=== PATIENT | female | born 2000 | race Caucasian/White ===

== ENCOUNTER 2020-05-26 07:40 | Emergency (ER) | payer OTHER, BC, SELFPAY ==
[2020-05-26 07:42] VITALS: RESP 20; TEMP 36.9; O2SAT 96; BMI 30.7
--- NOTE | 2020-05-26 07:59 | XR_ITS ---
PROCEDURE: XR CHEST 2V CLINICAL HISTORY: PAIN Right-sided chest pain COMPARISON: No exams were available for comparison FINDINGS: The cardiomediastinal silhouette and pulmonary vascularity are within normal limits. The lungs are clear without infiltrates, suspicious nodules, or pleural effusions. No acute bony abnormalities. IMPRESSION: No acute findings. Dictated by: Leopoldo Quiros MD 05/26/2020 10:04 Electronically signed by Leopoldo Quiros MD in [place] 05/26/2020 10:04
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
--- NOTE | 2020-05-26 07:59 | XR_ITS ---
PROCEDURE: XR SHOULDER RT MIN 2V CLINICAL INDICATION: PAIN COMPARISON: No exams were available for comparison FINDINGS: No fracture or dislocation. No lytic or blastic change. There is normal mineralization. The joint spaces are well-preserved. No significant degenerative/arthritic changes. No erosive changes evident. Other findings:None. IMPRESSION: No acute findings. Dictated by: Leopoldo Quiros MD 05/26/2020 10:04 Electronically signed by Leopoldo Quiros MD in [facility] 05/26/2020 10:04
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
[2020-05-26 08:13] LABS: Urine Pregnancy, HCG Qual. Negative (Negative)
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
[2020-05-26 08:23] VITALS: BP 124/84; PULSE 96; RESP 18; O2SAT 100
[2020-05-26 08:30] VITALS: BP 130/100; PULSE 82; RESP 20; O2SAT 99
--- NOTE | 2020-05-26 09:18 | PC.NURSE ---
CT SCAN OF CERVICAL SPINE IS NEGATIVE. C-COLLAR REMOVED. NAD. PATIENT REMAINS A/O X3 WITH GCS 15. NO NEW SYMPTOMS. WILL CONTINUE TO MONITOR.
[2020-05-26 09:21] VITALS: BP 130/85; PULSE 86; RESP 18; O2SAT 98
[2020-05-26 09:32] VITALS: BP 131/77; PULSE 81; RESP 18; TEMP 37.1; O2SAT 100
== END 2020-05-26 09:32 | disposition home or self-care (01) ==
PROVIDERS: Emergency Provider Emergency Medicine; PCP Family Medicine
DX: S46.911A Strain of unspecified muscle, fascia and tendon at shoulder and upper arm level, right arm, initial encounter (principal); S16.1XXA Strain of muscle, fascia and tendon at neck level, initial encounter; S80.02XA Contusion of left knee, initial encounter; S29.011A Strain of muscle and tendon of front wall of thorax, initial encounter; G44.319 Acute post-traumatic headache, not intractable; V43.53XA Car driver injured in collision with pick-up truck in traffic accident, initial encounter; Y92.414 Local residential or business street as the place of occurrence of the external cause
CPT/HCPCS: 70450; 71046; 72125; 73030; 73090; 73562; 81025; 99283

== ENCOUNTER 2020-09-29 10:01 | Emergency (ER) | payer BC, SELFPAY ==
[2020-09-29 10:31] VITALS: BP 116/76; PULSE 88; RESP 14; TEMP 37.1; O2SAT 100; BMI 27.8
--- NOTE | 2020-09-29 10:54 | HMH.EDUTC ---
[facility] [place] Clinical Impression: UTI (urinary tract infection) Qualifiers: Urinary tract infection type: site unspecified Hematuria presence: without hematuria Qualified Code(s): N39.0 - Urinary tract infection, site not specified Disposition: Home, Self-Care Condition on Discharge: Good Instructions: Urinary Tract Infection, DI for Urinary Tract Infection (UTI), Phenazopyridine, Nitrofurantoin Additional Instructions: *Increase fluids. Water not Soda or Tea *Start antibiotic immediately and be sure to take as ordered for the FULL length of time although you should start to see improvement over the next 48 hours *Pyridium as needed Remember this medication will turn your urine [place]. This is normal but it will stain what ever it gets on *You should not use Pyridium for more than 48 hours. If so , follow up with your primary physician to review urine culture and ensure that antibiotic is adequate for infection *Be SURE to follow up anytime for new or worsening symptoms with your family doctor. AND in 48 hours for urine culture results with your family doctor, if you do not have a doctor then you may call back to the [facility] for urine culture results and further treatment. We do recommend that you choose and establish care with a Primary Care Physician. AND follow up with them in 10-14 days to repeat UA to ensure infection is resolved and blood no longer present *Be sure to let your PCP know that we sent urine cultures from the [facility] so they can follow up to ensure that you area the on the correct antibiotic Call your doctor office and make appointment for 48 hours (2 days from today) to follow up and get the results of your urine culture and further treatment Prescriptions: Nitrofurantoin Monohyd/M-Cryst [Macrobid 100 mg Capsule] 100 mg PO BID 10 Days #20 cap Transmission Status: Pending to [facility] # Phenazopyridine HCl [Pyridium 200mg Tablet] 200 pow PO TID #6 tab Transmission Status: Pending to [facility] # Referrals: Camron Cardona MD [Primary Care Provider] - As needed Time of Disposition: 11:05 Medical Decision Making - Clayton Inquiry Pt receiving controlled substance: No Clayton was queried for this patient: No Vital Signs: 09/29/20 10:31 Temperature 98.8 F Temperature Source Oral Pulse Rate [Left Radial] 88 Pulse Rate [Right Radial] 88 Respiratory Rate 14 Blood Pressure [Right Arm] 116/76 Blood Pressure Mean [Right Arm] 89 Blood Pressure Source [Right Arm] Automatic Cuff Blood Pressure Position [Right Arm] Sitting 02 Sat by Pulse Oximetry 100 Oxygen Delivery Method Room Air Orders (Tests/Meds): ORDERS Category Date Time Status Urine Culture Routine Micro 09/29/20 10:30 Received Medical Decision Narrative: Patient states that she is no longer having migraine she is here for UTI [facility] [place] - General Stated complaint: possible uti Time Seen by Provider: 09/29/20 10:54 Mode of Arrival: Ambulatory Source of Information: Patient, Parent(s) Limitations: No Limitations Description of Symptoms (Recalled from Triage Doc. by RN): STATES SHE HAS HAD A BAG MIGRAINE AND BACK PAIN, SHE IS ALSO HAVING PAIN AFTER URINATING BUT IT'S STARTING TO GET BETTER HEENT Symptoms (Recalled from RN notes): Yes (HEADACHE) Resp Symptoms (Recalled from RN notes): No Skin Symptoms (Recalled from RN notes): No MS Symptoms (Recalled from RN notes): Yes (BACK PAIN) Functional Status (Recalled from RN notes): WNL - History of Present Illness Provider Complaint: Patient states that she had a migraine and laid around for a couple days then states that she has been having burning with urination and achy like feeling in her lower back that seems to be a little better States that she feels like she may have a UTI and wanted to get checked - Related Data Previous Rx's Medication Instructions Recorded Nitrofurantoin Monohyd/M-Cryst 100 mg PO BID 10 Days #20 cap 09/29/20 [Macrobid 100 mg Ca
[2020-09-29 11:09] LABS: Apearance,Urine Clear (Clear); Blood, Urine Negative (Negative); Color,Urine Yellow (Yellow); Glucose,Urine (UA) Negative (Negative); Ketones,Urine Negative (Negative); PH,Urine 5.5 (5.0-8.5); Protein,Urine Negative (Negative); Specific Gravity, Urine 1.025 (1.005-1.030)
[2020-09-29 11:10] LABS: Bilirubin,Urine Negative (Negative); UTC Leukocyte Esterase,Urine Trace (Negative); UTC Nitrate,Urine Negative (Negative); Urobilinogen,Urine 0.2 EU/dl (0.2)
[2020-09-29 11:15] VITALS: BP 116/76; PULSE 88; RESP 14; TEMP 37.1; O2SAT 100
== END 2020-09-29 11:15 | disposition home or self-care (01) ==
PROVIDERS: Emergency Provider Nurse Practitioner; PCP Family Medicine
DX: N39.0 Urinary tract infection, site not specified (principal); G43.709 Chronic migraine without aura, not intractable, without status migrainosus
CPT/HCPCS: 81003; 87086; 87186; 99202

== ENCOUNTER → 2021-10-11 14:41 | Outpatient (CLI) | payer BC, SELFPAY | PROVIDERS: PCP Family Medicine; Visit Provider Nurse Practitioner | DX: Z20.822 Contact with and (suspected) exposure to COVID-19 (principal) | CPT/HCPCS: C9803; U0003; U0005 ==

== ENCOUNTER 2022-08-06 16:02 | Emergency (ER) | payer BC, SELFPAY ==
[2022-08-06 17:00] VITALS: BP 129/80; PULSE 102; RESP 19; TEMP 37.5; O2SAT 100; BMI 35.4
[2022-08-06 17:08] LABS: UTC Strep Screen (Rapid) Negative (Negative)
--- NOTE | 2022-08-06 17:10 | EXP.UTC ---
Discharge Plan Disposition Patient Disposition: Home, Self-Care Condition: Good Prescriptions Prescriptions: New amoxicillin-pot clavulanate 875-125 mg Tablet 1 tab PO Q12H Qty: 20 0RF fluticasone propionate [Flonase Allergy Relief] 50 mcg/actuation spray,suspension 1 spray intranasal DAILY Qty: 16 0RF Rx Instructions: administer into each nostril No Action phenazopyridine 200 MG tablet 200 pow PO TID Qty: 6 0RF nitrofurantoin monohyd/m-cryst 100 MG capsule 100 mg PO BID 10 Days Qty: 20 0RF Referrals Follow up/Referrals: Camron Cardona MD [Primary Care Provider] - See instructions Activity Restrictions/Add. Instructions Additional Instructions/Restrictions: *Monitor Temp, Over the counter Motrin or Tylenol as directed/as needed Tylenol every 4 hours and Motrin every 6 hours (as long as your family doctor has told you that you can take it) for fever or pain. and straight to ER if unable to lower temp less than 101.0 after medication given *Warm salt water gargles may help to soothe the throat *Throat Lozenges? *Warm fluids like tea with honey may help to soothe the throat? *Sleep elevated *Humidifier/Vaporizer *Flonase 2 sprays in each nostril daily but be aware that it may take 2-3 days before you notice improvement Your throat swab was sent for culture. Those results are typically sent to your primary care. Be sure to follow up in 2-3 days with your family doctor/primary care physician if no improvement so they can review those result and treat if necessary. If you don?t have a primary care doctor, I recommend you get one but in the mean time, you will have to return to a walk in clinic Follow up IMMEDIATELY for new or worsening symptoms or no Noticeable improvement over the next 48-72 hours. 911 for difficulty breathing or swallowing You were tested for today for COVID19 your test result should be back in the next 24-48 hours, you may check your results on the [facility] My Health Portal Make sure to take your Vitamins Vit. C Vit D and Zinc if you can take them Clinical Impressions Clinical Impression: Otitis media Instructions Patient Instructions: Middle Ear Infection, DI for Sinusitis Discharge ED Provider: Karmen Murillo [facility] [place] General Stated complaint: sore throat,headache,runny nose Time Seen by Provider: 08/06/22 17:10 History of Present Illness Provider Complaint: Patient states that she hasnt felt well in several days States that she is has been having sore throat, headache, pain in her ears and nasal congestion States that it has got worse over the last few days so she came in Related Data Previous Rx's Medication Instructions Recorded nitrofurantoin 100 mg PO BID 10 days #20 caps 09/29/20 monohydrate/macrocrystals 100 mg capsule phenazopyridine 200 mg tablet 200 pow PO TID #6 tabs 09/29/20 amoxicillin 875 mg-potassium 1 tab PO Q12H #20 tabs 08/06/22 clavulanate 125 mg tablet fluticasone propionate 50 1 spray intranasal DAILY #16 grams 08/06/22 mcg/actuation nasal spray,suspension (Flonase Allergy Relief) Allergies Allergy/AdvReac Type Severity Reaction Status Date / Time poison avis extract Allergy Verified 04/01/19 11:43 NKDA Allergy Unknown Uncoded 08/18/18 16:36 [facility] Medical History (Updated 08/06/22 @ 17:21 by Karmen Murillo APRN) Migraine Urinary tract infection Social History Smoking Status: Never smoker alcohol intake: never current occupational status: employed Travel in the last 8 weeks: None household members: family housing: house current occupational exposures/hazards: No ROS Obtained: Yes All systems reviewed & no additional complaints except as documented and Yes Systems reviewed as appropriate & no additional complaints except as documented Constitutional Constitutional: Reports system reviewed and no additional complaints, except as documented, Reports as per HPI a
[2022-08-06 17:22] VITALS: BP 129/80; PULSE 102; RESP 19; TEMP 37.5; O2SAT 100
== END 2022-08-06 17:30 | disposition home or self-care (01) ==
PROVIDERS: Emergency Provider Nurse Practitioner; PCP Family Medicine
DX: H66.90 Otitis media, unspecified, unspecified ear (principal)
CPT/HCPCS: 87880; 99212; C9803; G0463; U0003; U0005

== ENCOUNTER 2023-07-17 09:56 | Emergency (ER) | payer BC, SELFPAY ==
[2023-07-17 10:10] VITALS: BP 118/79; PULSE 114; RESP 20; TEMP 36.8; O2SAT 97; BMI 37.3
--- NOTE | 2023-07-17 10:30 | EXP.UTC ---
Discharge Plan Disposition Patient Disposition: Home, Self-Care Condition: Good Prescriptions Prescriptions: New [id number]-[id number] [Bromfed DM] 2-30-10 mg/5 mL Syrup 10 ml PO Q4H PRN (Reason: Cough) Qty: 240 0RF No Action phenazopyridine 200 MG tablet 200 pow PO TID Qty: 6 0RF nitrofurantoin monohyd/m-cryst 100 MG capsule 100 mg PO BID 10 Days Qty: 20 0RF amoxicillin-pot clavulanate 875-125 mg Tablet 1 tab PO Q12H Qty: 20 0RF fluticasone propionate [Flonase Allergy Relief] 50 mcg/actuation spray,suspension 1 spray intranasal DAILY Qty: 16 0RF Rx Instructions: administer into each nostril Referrals Follow up/Referrals: Camron Cardona MD [Primary Care Provider] - See instructions Activity Restrictions/Add. Instructions Additional Instructions/Restrictions: *Monitor Temp, Over the counter Motrin or Tylenol as directed/as needed Tylenol every 4 hours and Motrin every 6 hours (as long as your family doctor has told you that you can take it) for fever or pain. and straight to ER if unable to lower temp less than 101.0 after medication given *Warm salt water gargles may help to soothe the throat Over the counter Sudafed may help with nasal congestion and pressure *Throat Lozenges? *Warm fluids like tea with honey may help to soothe the throat? *Sleep elevated *Humidifier/Vaporizer *Flonase 2 sprays in each nostril daily but be aware that it may take 2-3 days before you notice improvement *Bromfed may cause drowsiness. Know how it effects you (your child) before driving, caring for small child, or sending your child to school. Not other antihistamines/allergy medications while taking bromfed Your throat swab was sent for culture. Those results are typically sent to your primary care. Be sure to follow up in 2-3 days with your family doctor/primary care physician if no improvement so they can review those result and treat if necessary. If you don?t have a primary care doctor, I recommend you get one but in the mean time, you will have to return to a walk in clinic Follow up IMMEDIATELY for new or worsening symptoms or no Noticeable improvement over the next 48-72 hours. 911 for difficulty breathing or swallowing You were tested for today for COVID19 your test result should be back in the next 24-48 hours, you may check your results on the [facility] Portal for the results Clinical Impressions Clinical Impression: Viral upper respiratory tract infection with cough Instructions Patient Instructions: Sore Throat, Cough, DI for Nasal Congestion Discharge ED Provider: Karmen Murillo [facility] [place] General Stated complaint: fever/chills, h/a, sore throat Time Seen by Provider: 07/17/23 10:20 History of Present Illness Provider Complaint: Patient state that she hasnt been feeling well for the last couple of days State that she has been having sore throat, body aches, chills, pain and pressure in her ears and sinuses and over all not feeling well State that it hurts when she swallows and feels like her throat is swollen and lymph nodes are swollen Related Data Previous Rx's Medication Instructions Recorded nitrofurantoin 100 mg PO BID 10 days #20 caps 09/29/20 monohydrate/macrocrystals 100 mg capsule phenazopyridine 200 mg tablet 200 pow PO TID #6 tabs 09/29/20 amoxicillin 875 mg-potassium 1 tab PO Q12H #20 tabs 08/06/22 clavulanate 125 mg tablet fluticasone propionate 50 1 spray intranasal DAILY #16 grams 08/06/22 mcg/actuation nasal spray,suspension (Flonase Allergy Relief) [id number]-EV 10 ml PO Q4H PRN Cough #240 mL 07/17/23 2 mg-30 mg-10 mg/5 mL oral syrup (Bromfed DM) Allergies Allergy/AdvReac Type Severity Reaction Status Date / Time poison avis extract Allergy Verified 04/01/19 11:43 NKDA Allergy Unknown Uncoded 08/18/18 16:36 [facility] Disclaimer: The information cont
[2023-07-17 10:45] VITALS: BP 118/79; PULSE 114; RESP 20; TEMP 36.8; O2SAT 97
[2023-07-17 12:12] LABS: UTC Strep Screen (Rapid) Negative (Negative)
== END 2023-07-17 10:50 | disposition home or self-care (01) ==
PROVIDERS: Emergency Provider Nurse Practitioner; PCP Family Medicine
DX: J06.9 Acute upper respiratory infection, unspecified (principal); R05.9 Cough, unspecified; H92.03 Otalgia, bilateral; B34.9 Viral infection, unspecified
CPT/HCPCS: 87880; 99212; 99214; G0463

== ENCOUNTER 2023-12-10 08:31 | Emergency (ER) | payer BC, SELFPAY ==
[2023-12-10 08:50] VITALS: BP 137/82; PULSE 129; RESP 18; TEMP 36.7; O2SAT 96; BMI 37.6
--- NOTE | 2023-12-10 09:08 | EXP.UTC ---
Discharge Plan Disposition Patient Disposition: Home, Self-Care Condition: Good Prescriptions Prescriptions: New oseltamivir [Tamiflu] 75 mg capsule 75 mg PO BID Qty: 10 0RF [id number]-jsrvqzmts-VT [Bromfed DM] 2-30-10 mg/5 mL Syrup 5 ml PO Q6H PRN (Reason: Cough) Qty: 240 0RF ondansetron 4 mg Tablet,Disintegrating 4 mg PO Q8H PRN (Reason: Nausea) Qty: 12 0RF Referrals Follow up/Referrals: Camron Cardona MD [Primary Care Provider] - See instructions Activity Restrictions/Add. Instructions Additional Instructions/Restrictions: Drink plenty of fluids. Take tylenol or ibuprofen for pain or fever. Take the medications as directed. Follow up with your regular doctor. GO TO THE ER FOR ANY WORSENING SYMPTOMS Clinical Impressions Clinical Impression: Influenza A, Acute viral syndrome Stand Alone Forms Stand Alone Forms: Work/School Release Instructions Patient Instructions: DI for Influenza -- Adult, Oseltamivir Discharge ED Provider: Gio Valverde [facility] General Stated complaint: Sore throat, congestion, cough, fever 101 Time Seen by Provider: 12/10/23 09:08 History of Present Illness Provider Complaint: She states that for the past 1 day she has had fever, chills, malaise, cough, sore throat, and fever. Related Data Previous Rx's Medication Instructions Recorded gtshsniotmoiwgb-esivhdzrsyzvjbh-NF 5 ml PO Q6H PRN Cough #240 mL 12/10/23 2 mg-30 mg-10 mg/5 mL oral syrup (Bromfed DM) ondansetron 4 mg disintegrating 4 mg PO Q8H PRN Nausea #12 tabs 12/10/23 tablet oseltamivir 75 mg capsule (Tamiflu) 75 mg PO BID #10 caps 12/10/23 Allergies Allergy/AdvReac Type Severity Reaction Status Date / Time poison avis extract Allergy Verified 12/10/23 09:11 NKDA Allergy Unknown Uncoded 08/18/18 16:36 [facility] Disclaimer: The information contained in this section may have been updated after the patient was seen, as this information can be updated by other users. Medical History (Updated 12/10/23 @ 09:13 by Gio Valverde APRN) Migraine Urinary tract infection Social History Smoking Status: Never smoker alcohol intake: never current occupational status: employed Travel in the last 8 weeks: None household members: family housing: house current occupational exposures/hazards: No ROS Obtained: Yes All systems reviewed & no additional complaints except as documented Constitutional Constitutional: Reports chills and Reports fever(s) Eyes Eyes: Denies eye discharge ENT Ears, Nose, Mouth, and Throat: Reports as per HPI Cardiovascular Cardiovascular: Denies chest pain Respiratory Respiratory: Denies chest congestion and Reports cough Gastrointestinal Gastrointestingal: Reports nausea; Denies abdominal pain, constipation, cramping, diarrhea or vomiting Musculoskeletal Musculoskeletal: Denies arthralgias Integumentary/Breasts Skin/Breast: Denies rash Neurologic Neurologic: Denies paresthesias Physical Exam General General appearance: alert and in no apparent distress Eye Eye exam: Present normal appearance, PERRL and EOMI ENT ENT exam: Present mucous membranes moist and normal external ear exam Expanded ENT Exam External ear exam: Present normal external inspection TM/Canal exam: Bilateral TM: erythema and bulging Nose exam: Absent sinus tenderness Nasal speculum exam: Bilateral: normal Mouth exam: Present normal external inspection; Absent drooling Teeth exam: Present normal inspection Throat exam: Present tonsillar erythema and tonsillomegaly Neck Neck exam: Present normal inspection, full ROM and trachea midline; Absent tenderness, lymphadenopathy or thyromegaly Chest Chest inspection: Present normal inspection and symmetric chest wall rise; Absent tenderness or rash Respiratory Respiratory exam: Present normal lung sounds bilaterally; Absent respiratory distress, wheezes, stridor or accessory muscle use Cardiovascular Cardiovascular exam: Present regular rate, normal rhythm and normal heart sounds Abdominal Exam Abdominal exam: Present soft; Absent distention, tenderness, guarding, rebound or rigidity Extremities Exam Extremities exam: Present normal inspection, full ROM and normal capillary refill; Absent tenderness or calf tenderness Back Exam Back exam: Present normal inspection and full ROM; Absent tenderness Neurological Exam Neurological exam: Present alert and oriented X3 Psychiatric Psychiatric exam: Present normal affect and normal mood Skin Skin exam: Present warm, dry, intact and normal color Lymphatic Lymphatic Findings: no adenopathy Medical Decision Making Medical Records Medical records reviewed: No I reviewed the patient's medical records. [place] Inquiry Pt receiving controlled substance: No Lab Data Lab results reviewed: Yes I reviewed the patient's lab results.
[2023-12-10 09:14] LABS: UTC Influenza A Antigen Positive (Negative)
[2023-12-10 09:15] LABS: UTC Influenza B Antigen Negative (Negative); UTC Strep Screen (Rapid) Negative (Negative)
[2023-12-10 09:49] VITALS: BP 137/81; PULSE 129; RESP 18; TEMP 36.7; O2SAT 96
[2023-12-10 13:54] LABS: Influenza A, PCR Not Detected (NotDetected); Influenza B, PCR Not Detected (NotDetected)
[2023-12-10 15:27] LABS: Coronavirus 19, PCR Detected (NotDetected)
== END 2023-12-10 09:49 | disposition home or self-care (01) ==
PROVIDERS: Emergency Provider Nurse Practitioner Family; PCP Family Medicine
DX: U07.1 COVID-19 (principal); J10.1 Influenza due to other identified influenza virus with other respiratory manifestations; R50.9 Fever, unspecified; R07.0 Pain in throat; R05.9 Cough, unspecified; R11.0 Nausea; R53.81 Other malaise
CPT/HCPCS: 87636; 87804; 87880; 99212; 99214; G0463

== ENCOUNTER 2025-11-05 10:33 | Outpatient (CLI) | payer BC, SELFPAY ==
[2025-11-05 15:38] LABS: Coronavirus 19, PCR Not Detected (NotDetected); Influenza A, PCR Not Detected (NotDetected); Influenza B, PCR Not Detected (NotDetected)
--- OUTSIDE RECORDS SUMMARY | 2025-11-06 13:27 | XMS_ITS | Clinical Summary ---
Author Organization Healthcare Address [address] [place] [address] Care Team Providers Care Hypo Splasher Name Role Phone Camron Cardona MD Primary Care Provider [phone] Social History Tobacco Use Types Packs/Day Years Used Date Smoking Tobacco: Never Comments Unknown Sex and Gender Information Value Date Recorded Sex Assigned at Not on file Legal Sex Female 6:45 PM EDT Gender Identity Not on file Sexual Orientation Not on file Last Filed Vital Signs Vital Sign Reading Time Taken Comments Blood Pressure - - Pulse - - Temperature - - Respiratory Rate - - Oxygen Saturation - - Inhaled Oxygen Concentration - - Weight 71.2 kg (157 lb 0.2 oz) 10/04/2014 10:56 AM EST Height 175.3 cm (5' 9 ) 10/04/2014 10:56 AM EST Body Mass Index 23.19 10/04/2014 10:56 AM EST Plan of Treatment Not on file Care Teams Hypo Splasher Relationship Specialty Start Date End Date Camron Cardona MD [address] [place] [id number] PCP - General 03/28/21
== END 2025-11-05 23:59 | disposition home or self-care (01) ==
LOC: LAB.DROPOF 11-06 13:21
PROVIDERS: PCP Family Medicine; Visit Provider Student in an Organized Health Care Education/Training Program
DX: J06.9 Acute upper respiratory infection, unspecified (principal)
CPT/HCPCS: 87631